=== PATIENT | male | born 1970 | race Caucasian/White ===

== ENCOUNTER 2023-08-28 18:53 | Emergency (ER) | payer MEDICAID ==
[~2023-08-28] VITALS: Ht 167.6 cm; Wt 99.8 kg
[2023-08-28 19:04] VITALS: BP 161/104; PULSE 88; RESP 16; TEMP 97.1; O2SAT 97
[2023-08-28 19:52] LABS: BASOPHILS # (AUTO) 0.1 K/uL (0.00-0.22); BASOPHILS % (AUTO) 0.6 % (0.0-2.0); EOSINOPHILS # (AUTO) 0.2 K/uL (0-0.4); EOSINOPHILS % (AUTO) 1.9 % (0.0-4.0); HEMATOCRIT 42.9 % (36-52); HEMOGLOBIN 14.3 g/dL (12.0-18.0); LYMPHOCYTES # (AUTO) 3.3 K/uL (2.0-11.5); LYMPHOCYTES % (AUTO) 28.2 % (20.5-51.1); MEAN CORPUSCULAR HEMOGLOBIN 30 pg (27-31); MEAN CORPUSCULAR HGB CONC 33 g/dL (33-37); MEAN CORPUSCULAR VOLUME 90.3 fL (80-94); MONOCYTES # (AUTO) 1.4 K/uL (0.8-1.0); MONOCYTES % (AUTO) 12.1 % (1.7-9.3); NEUTROPHILS # (AUTO) 6.7 K/uL (1.8-7.7); NEUTROPHILS % (AUTO) 57.2 % (42.2-75.2); PLATELET COUNT (AUTO) 208 K/uL (140-450); RED BLOOD CELL COUNT(AUTO) 4.75 MIL/uL (4.20-6.10); RED CELL DISTRIBUTION WIDTH 14.6 % (11.6-13.7); WHITE BLOOD COUNT (AUTO) 11.7 K/uL (4.8-10.8)
[2023-08-28 20:04] LABS: ANION GAP 12.6 (8-16); CALCIUM 9.1 mg/dL (8.5-10.1); CARBON DIOXIDE 29.4 mmol/L (21-32)
[2023-08-28 20:41] VITALS: BP 159/107; PULSE 78; RESP 15; TEMP 97.4; O2SAT 98
== END 2023-08-28 20:41 | disposition home or self-care (01) ==
LOC: MED 18:53 → EDBD 18:53 → MED 20:41
DX: R07.9 Chest pain, unspecified (principal)
CPT/HCPCS: 36415; 71045; 80048; 84484; 85025; 93005; 99285; Q0092